=== PATIENT | female | born 1955 | race Caucasian/White ===

== ENCOUNTER 2017-05-24 11:33 | Inpatient (IN) | payer BC ==
[2017-05-24 12:17] LABS: CHLORIDE,CL 102 mmol/L (98-115); SODIUM,NA 142 mmol/L (136-145)
[2017-05-24] MEDS ORDERED: Ondansetron 4 MG Tab.DIS PO PRN (13:32)
[2017-05-24] MEDS ORDERED: Sodium Chloride 0.9% 5 ML Syringe FLUSH PRN (13:32)
[2017-05-24] MEDS ORDERED: Non-Formulary Medication 1 Each (Rup Rub 1 APPLIC) TOP PRN (13:39)
[2017-05-24] MEDS ORDERED: SUMAtriptan 25 MG Tab PO PRN (13:39)
[2017-05-24] MEDS ORDERED: Albuterol HFA 18 Gm Inhaler INH PRN (13:39)
[2017-05-24] MEDS ORDERED: 20% Ketoprofen 12 GM, 3% Menthol 1.8 GM & 8% Trolamine Salicylate 46.2 GM TOP PRN ×3 (13:46)
[2017-05-24] MEDS ORDERED: Oseltamivir 75 MG Cap PO ONE ×2 (14:01→20:42)
[2017-05-24] MEDS: Oseltamivir 75 MG Cap PO SCH ×2 (14:01→20:42)
[2017-05-24] MEDS ORDERED: Ketorolac 30 MG/ML SDV IVPUSH ONE (14:02)
[2017-05-24] MEDS: Sodium Chloride 0.9% 1,000 ML IV SCH ×2 (14:08→23:22)
[2017-05-24] MEDS: Acetaminophen 650 MG Tab.ER PO SCH ×2 (14:08→19:57)
[2017-05-24] MEDS: Benzonatate 100 MG Cap PO PRN ×2 (14:11→22:22)
[2017-05-24] MEDS: Azithromycin 500 MG in Sodium Chloride 0.9% 250 ML IV SCH (14:58)
[2017-05-24] MEDS: Albuterol/Ipratropium 3.0-0.5 MG/3 ML Neb Soln NEB PRN ×2 (16:21→20:43)
[2017-05-24] MEDS: Metoprolol Succinate 50 MG Tab.ER PO SCH (20:41)
[2017-05-24] MEDS: guaiFENesin/Dextromethorphan 100-10 MG/5 ML Soln 5 ML Cup PO PRN (20:42)
[2017-05-25] MEDS: Acetaminophen 650 MG Tab.ER PO SCH ×4 (02:10→19:07)
[2017-05-25] MEDS: Albuterol/Ipratropium 3.0-0.5 MG/3 ML Neb Soln NEB PRN ×3 (03:11→19:40)
[2017-05-25] MEDS: ALPRAZolam 0.25 MG Tab PO PRN (03:14)
[2017-05-25] MEDS: guaiFENesin/Dextromethorphan 100-10 MG/5 ML Soln 5 ML Cup PO PRN ×3 (03:14→19:39)
[2017-05-25] MEDS: Sodium Chloride 0.9% 1,000 ML IV SCH ×3 (06:01→22:58)
[2017-05-25 08:00] LABS: CHLORIDE,CL 104 mmol/L (98-115); SODIUM,NA 146 mmol/L (136-145)
[2017-05-25] MEDS ORDERED: Metoprolol Succinate 50 MG Tab.ER PO SCH (09:00)
[2017-05-25] MEDS ORDERED: POTASSIUM GLUCONATE PO SCH (09:00)
[2017-05-25] MEDS: Multivitamins with Minerals/Iron/Folic Acid/Lycopene Tab PO SCH (09:20)
[2017-05-25] MEDS: Oseltamivir 75 MG Cap PO SCH ×2 (09:20→20:25)
[2017-05-25] MEDS ORDERED: Oseltamivir 75 MG Cap PO ONE ×2 (09:20→20:25)
[2017-05-25] MEDS: Losartan 50 MG Tab PO SCH (09:20)
[2017-05-25] MEDS: Cholecalciferol (Vitamin D3) 1,000 Unit Tab PO SCH (09:23)
[2017-05-25] MEDS: Venlafaxine 150 MG Cap.ER PO SCH (09:23)
[2017-05-25] MEDS: Benzonatate 100 MG Cap PO PRN (09:27)
[2017-05-25] MEDS ORDERED: methylPREDNISolone Sodium Succinate 125 MG/2 ML SDV IVPUSH ONE (10:01)
[2017-05-25] MEDS: Acetaminophen 325 MG Tab PO PRN (11:09)
--- NOTE | 2017-05-25 13:00 | PN ---
05/25/2017 PATIENT NAME: SHORTY PIÑA This is a 62-year-old female, who was admitted yesterday with influenza B. She was seen in the clinic on 05/22/2017, with findings consistent with an upper respiratory infection. She was not checked for influenza that day due to the fact that she was not febrile. CBC was normal, CMP was normal, and TSH was normal. She also had an associated complaint of weight gain with inability to lose weight. She progressively became worse over the past two days and saw Dr. Eneida Vee in the clinic yesterday. She was swabbed for influenza A and B and was positive for influenza B as previously stated. The patient states today she feels "pretty tough." She has been running a low-grade temp this morning of 100.3. White count yesterday was 10.8, today at 7.1; hemoglobin was 14.2 yesterday, now 11.7. She does have serial CBCs throughout the weekend ordered. Sodium was 142 yesterday, today 146, clinically insignificant. BUN and creatinine are normal with a GFR of over 60. She has been pancultured with cultures pending. Urine culture thus far has had no growth after one day. The patient has a horrible cough. She has Tessalon Perles ordered due to the fact that Cheratussin was not effective for her. She also has a p.r.n. Robitussin order as well. She was previously treated with Zithromax, prednisone, Cheratussin, and an albuterol inhaler. She has not continued steroids in the hospital, however, continues on Zithromax. She is also being treated with Tamiflu. PHYSICAL EXAMINATION: VITAL SIGNS: Temp is 100.3, pulse is 92, respirations 20, blood pressure 131/85, O2 saturations 94% on room air. SKIN: Very warm and dry to touch. CARDIAC: Reveals S1, S2 to be normal. Rate and rhythm are regular. No murmur, click, or gallop is auscultated. LUNGS: Coarse rhonchi as well as inspiratory and expiratory wheezes throughout. IMPRESSION: Influenza B. We will continue Tamiflu as well as Zithromax. She can continue with the Tessalon as well as Robitussin for the cough. We will add Solu-Medrol 125 mg x1 today and then continue Solu-Medrol t.i.d. at a dose of 80 mg starting tomorrow. I will see her tomorrow as well. Hopefully, she improves quickly. She is still feeling very ill. She is in isolation, which is appropriate for the care of this patient. /[id number]/MODL
[2017-05-25] MEDS: Azithromycin 500 MG in Sodium Chloride 0.9% 250 ML IV SCH (13:55)
[2017-05-25] MEDS: Ketorolac 30 MG/ML SDV IVPUSH PRN (18:21)
[2017-05-25] MEDS: Metoprolol Succinate 50 MG Tab.ER PO SCH (20:26)
[2017-05-25] MEDS: Zolpidem 5 MG Tab PO PRN (21:24)
[2017-05-26] MEDS: Acetaminophen 650 MG Tab.ER PO SCH ×4 (03:12→19:33)
[2017-05-26] MEDS: Albuterol/Ipratropium 3.0-0.5 MG/3 ML Neb Soln NEB PRN ×2 (06:26→10:59)
[2017-05-26] MEDS: guaiFENesin/Dextromethorphan 100-10 MG/5 ML Soln 5 ML Cup PO PRN (06:33)
[2017-05-26] MEDS: Sodium Chloride 0.9% 1,000 ML IV SCH ×2 (07:31→17:24)
[2017-05-26] MEDS: Oseltamivir 75 MG Cap PO SCH ×2 (08:24→21:09)
[2017-05-26] MEDS ORDERED: Oseltamivir 75 MG Cap PO ONE ×2 (08:24→21:09)
[2017-05-26] MEDS: Multivitamins with Minerals/Iron/Folic Acid/Lycopene Tab PO SCH (08:25)
[2017-05-26] MEDS: Cholecalciferol (Vitamin D3) 1,000 Unit Tab PO SCH (08:25)
[2017-05-26] MEDS: Venlafaxine 150 MG Cap.ER PO SCH (08:25)
[2017-05-26] MEDS: Losartan 50 MG Tab PO SCH (08:26)
[2017-05-26] MEDS: methylPREDNISolone Sodium Succinate 125 MG/2 ML SDV IVPUSH SCH ×2 (08:35→15:41)
[2017-05-26] MEDS: Benzonatate 100 MG Cap PO PRN (08:35)
[2017-05-26 09:01] LABS: CHLORIDE,CL 108 mmol/L (98-115); SODIUM,NA 142 mmol/L (136-145)
[2017-05-26] MEDS ORDERED: Levofloxacin/Dextrose 5%-Water 500 MG in Premix Bag 1 BAG IV SCH (10:00)
[2017-05-26] MEDS: Codeine/guaiFENesin 100mg-10 MG/5 ML Syrup 10 ML Cup PO PRN ×3 (11:04→19:45)
--- NOTE | 2017-05-26 12:04 | PN ---
05/26/2017 PATIENT NAME: SHORTY PIÑA ADDENDUM: She will not be started on Levaquin as she is allergic to Cipro. I will talk to Dr. Eneida Vee in regard to starting vancomycin versus continuing the Zithromax. The patient does not appear to be improving on just the Zithromax. /[id number]/MODL
--- NOTE | 2017-05-26 12:39 | PN ---
05/26/2017 PATIENT NAME: SHORTY BARNES ADDENDUM This is a second addendum on Shorty Barnes from 05/26/2017. I consulted via telephone with Dr. Eneida Vee in regard to further antibiotics. She recommended that the patient be started on doxycycline 100 mg b.i.d. orally, which we will do. She did not recommend that a vancomycin be used because the patient is not an MRSA risk. Also due to the fact that the nipple shadow versus a right lower lung nodule was found on the initial chest x- ray, nipple markers will be used for the chest x-ray today. /[id number]/MODL
[2017-05-26] MEDS: Azithromycin 500 MG in Sodium Chloride 0.9% 250 ML IV SCH (13:43)
[2017-05-26] MEDS: Zolpidem 5 MG Tab PO PRN (21:07)
[2017-05-26] MEDS: ALPRAZolam 0.25 MG Tab PO PRN (21:07)
[2017-05-26] MEDS: Metoprolol Succinate 50 MG Tab.ER PO SCH (21:08)
[2017-05-27] MEDS: methylPREDNISolone Sodium Succinate 125 MG/2 ML SDV IVPUSH SCH ×3 (00:02→16:25)
[2017-05-27] MEDS: Codeine/guaiFENesin 100mg-10 MG/5 ML Syrup 10 ML Cup PO PRN ×5 (00:02→21:34)
[2017-05-27] MEDS: Sodium Chloride 0.9% 1,000 ML IV SCH (00:53)
[2017-05-27] MEDS: Acetaminophen 650 MG Tab.ER PO SCH ×4 (00:55→19:40)
[2017-05-27] MEDS: Benzonatate 100 MG Cap PO PRN ×3 (03:12→21:33)
[2017-05-27] MEDS: Losartan 50 MG Tab PO SCH ×2 (06:10→08:59)
[2017-05-27] MEDS: Albuterol/Ipratropium 3.0-0.5 MG/3 ML Neb Soln NEB PRN ×4 (06:57→21:34)
[2017-05-27 07:44] LABS: CHLORIDE,CL 106 mmol/L (98-115); SODIUM,NA 146 mmol/L (136-145)
--- NOTE | 2017-05-27 08:13 | PN ---
05/26/2017PATIENT NAME: SHORTY PIÑA This is a 62-year-old female who is being seen today on inpatient rounds. This is her 3rd hospital day. She was admitted on 05/24/2017 with influenza B. She had initially been seen in the clinic on 05/22/2017 with an upper respiratory infection. She did not improve; in fact, declined and developed a fever and came back into the clinic on Saturday, 05/24 and was found to be positive for influenza B. The patient has a harsh nonproductive cough. Initially, she described her symptoms and the cough from coming more in her windpipe, but now she feels as though the cough has moved down into her lungs. She is using Tessalon Perles as well as plain Robitussin for the cough with little relief. She was taking Cheratussin initially as an outpatient, however, did not feel it was very effective. She is open to giving it another try as her cough is really wearing her down. She is just a tiny bit better today clinically. She has been afebrile for the past 12 hours with a temp of 98.9, 98.4, and 98.1. Lab results from today, her white count is normal at 9.1. She does have an elevated neutrophil percentage of 73.1. This is up from yesterday, but not as high as it was on 05/24. Comprehensive metabolic panel shows an elevated glucose, most likely steroid induced; calcium of 8.0, alkaline phosphatase is low at 6.0, and albumin is 2.9. Liver function tests are normal. Urine culture shows no growth after two days. Blood cultures show no growth after 24 hours. Corrected calcium is 8.9 based on her albumin, which is within normal limits. Chest x-ray from 05/24/2017 showed nipple shadow versus nodule on the right lung base, consider repeat with nipple markers. No acute infiltrates were identified at that time. When I came into the room today, the patient was crying more out of frustration. She is sick of being so sick per her report. Her daughter did call and question whether the patient needed to be transferred to [place]. I do not believe that that is clinically indicated at that time, nor does the patient want to be transferred. I do not believe it would be an appropriate transfer since she is not deteriorating and is hemodynamically stable and oxygenating adequately. PHYSICAL EXAMINATION: GENERAL: On examination, the patient appears to be in no acute distress, however, she does have a very harsh cough. VITAL SIGNS: Temperature is 98.1, pulse 84, respirations 20, blood pressure 150/80, oxygen saturation is 98% on room air. SKIN: Warm and dry to touch. CARDIAC: Exam reveals S1, S2 to be normal. Rate and rhythm are regular. No murmur, click, or gallop is auscultated. LUNGS: The lungs continue to have coarse rhonchi as well as inspiratory and expiratory wheezes. I do not auscultate any rales. IMPRESSION: Influenza B with harsh cough, not improved with current p.r.n. cough suppressants. We will repeat the chest x-ray today. We will add Cheratussin back into her p.r.n. cough medications. She has been using Tessalon Perles due to the ineffectiveness of the Cheratussin on an outpatient basis, but the patient is willing to try this again. She has been also using normal Robitussin. She is on day five of Zithromax. This will be discontinued after today's dose and she will start on Levaquin 500 mg IV daily. We will continue to monitor her labs. She is hemodynamically stable. She is oxygenating well. Clinically, she appears to be a tiny bit better, however, the patient does not feel any better than she did yesterday. We will continue to follow closely. I have communicated my findings with Dr. Vee who is the admitting physician and I am waiting for a response. /[id number]/MODL
--- NOTE | 2017-05-27 08:42 | PCM.PN ---
- General Info Date of Service: 05/27/17 Admission Dx/Problem (Free Text): Influenza B - Review of Systems Systems Review Comment:: Sherice is seen this morning in inpatient rounds. She was admitted on 05/24/17 with Influenza B. She had been on Tamiflu and Azithromycin. She did 5 days of azithromycin and was not felt to be getting much better and so her antibiotics was changed on 05/26/17 to doxycycline due to allergies to PCN and flouroquinolones. She states this morning she feels like she may be getting a little bit getter. Her cough is more manageable and is starting to loosen up. She had a temp of 99 this morning and BP was 180/106, recheck she states was also high but has not yet been charted. She had not yet taken her morning meds at the time her BP had been taken. She also has had IVF's running at 125 cc/hr and she now has good oral intake. She still feels SOB and has been wheezing. She is on oxygen at 2L/min. This is keeping her sats at 97%. She has not had any problems with urination or bowel movements. She has been up and walking and sitting in a chair. - Patient Data Vitals - Most Recent: Last Vital Signs Temp 99.0 F 05/27/17 06:25 Pulse 100 05/27/17 06:57 Resp 16 05/27/17 06:25 BP 180/106 H 05/27/17 06:25 Pulse Ox 97 05/27/17 06:57 Weight - Most Recent: 197 lb 9.6 oz I&O - Last 24 Hours: Intake & Output 05/26/17 05/27/17 05/27/17 22:59 06:59 14:59 Intake Total 2628 1321 Output Total 1700 1100 Balance 928 221 Lab Results Last 24 Hours: Laboratory Results - last 24 hr 05/26/17 05/26/17 05/27/17 Range/Units 06:35 06:35 07:10 WBC 10.6 H (5.0-10.0) 10^3/uL RBC 3.76 L (3.80-5.50) 10^6/uL Hgb 11.6 L (12.0-16.0) g/dL Hct 34.2 L (37.0-47.0) % MCV 90.8 (82.0-92.0) fL MCH 30.8 (27.0-31.0) pg MCHC 33.9 (32.0-36.0) g/dL RDW 12.4 (11.5-14.5) % Plt Count 211 (150-300) 10^3/uL MPV 8.0 (7.4-10.4) fL Neut % (Auto) 86.7 H (50.0-70.0) % Lymph % (Auto) 10.9 L (20.0-40.0) % [place] % (Auto) 2.2 (2.0-8.0) % Eos % (Auto) 0.1 L (1.0-3.0) % Baso % (Auto) 0.1 (0.0-1.0) % Neut # (Auto) 9.2 H (2.5-7.0) 10^3/uL Lymph # (Auto) 1.2 (1.0-4.0) 10^3/uL [place] # (Auto) 0.2 (0.1-0.8) 10^3/uL Eos # (Auto) 0.0 L (0.1-0.3) 10^3/uL Baso # (Auto) 0.0 (0.0-0.1) 10^3/uL Sodium 142 (136-145) mmol/L Potassium 3.7 (3.3-5.3) mmol/L Chloride 108 (98-115) mmol/L Carbon Dioxide 26.1 (21.0-32.0) mmol/L BUN 6 (6-25) mg/dL Creatinine 0.64 (0.51-1.17) mg/dL Est Cr Clr Drug Dosing 76.68 mL/min Estimated GFR (MDRD) > 60 mL/min Glucose 114 H (70-110) mg/dL Calcium 8.0 L (8.7-10.3) mg/dL Total Bilirubin 0.2 (0.2-1.0) mg/dL Direct Bilirubin 0.0 (0.0-0.2) mg/dL AST 16 (15-37) U/L ALT 20 (12-78) U/L Alkaline Phosphatase 85 (46-116) IU/L Total Protein 6.0 L (6.4-8.2) g/dL Albumin 2.90 L (3.00-4.80) g/dL 05/27/17 Range/Units 07:10 WBC (5.0-10.0) 10^3/uL RBC (3.80-5.50) 10^6/uL Hgb (12.0-16.0) g/dL Hct (37.0-47.0) % MCV (82.0-92.0) fL MCH (27.0-31.0) pg MCHC (32.0-36.0) g/dL RDW (11.5-14.5) % Plt Count (150-300) 10^3/uL MPV (7.4-10.4) fL Neut % (Auto) (50.0-70.0) % Lymph % (Auto) (20.0-40.0) % [place] % (Auto) (2.0-8.0) % Eos % (Auto) (1.0-3.0) % Baso % (Auto) (0.0-1.0) % Neut # (Auto) (2.5-7.0) 10^3/uL Lymph # (Auto) (1.0-4.0) 10^3/uL [place] # (Auto) (0.1-0.8) 10^3/uL Eos # (Auto) (0.1-0.3) 10^3/uL Baso # (Auto) (0.0-0.1) 10^3/uL Sodium 146 H (136-145) mmol/L Potassium 4.3 (3.3-5.3) mmol/L Chloride 106 (98-115) mmol/L Carbon Dioxide 28.8 (21.0-32.0) mmol/L BUN 8 (6-25) mg/dL Creatinine 0.64 (0.51-1.17) mg/dL Est Cr Clr Drug Dosing 76.68 mL/min Estimated GFR (MDRD) > 60 mL/min Glucose 149 H (70-110) mg/dL Calcium 8.1 L (8.7-10.3) mg/dL Total Bilirubin (0.2-1.0) mg/dL Direct Bilirubin (0.0-0.2) mg/dL AST (15-37) U/L ALT (12-78) U/L Alkaline Phosphatase (46-116) IU/L Total Protein (6.4-8.2) g/dL Albumin (3.00-4.80) g/dL Mikal Results Last 24 Hours: Microbiology 05/24/17 14:55 Aerobic Blood Culture - Preliminary Blood - Venous - Lab Draw NO GROWTH AFTER 2 DAYS Anaerobic Blood Culture - Preliminary NO GROWTH AFTER 2 DAYS 05/24/17 14:40 Aerobic Blood Culture - Preliminary Blood - Venous NO GROWTH AFTER 2 DAYS Anaerobic Blood Culture - Preliminary NO GROWTH AFTER 2 DAYS 05/24/17 13:32 Urine Culture - Final Urine, Bladder NO GROWTH AFTER 2 DAYS Med Orders - Current: Current Medications Acetaminophen (Tylenol) 650 mg PO Q4H PRN PRN Reason: Pain (Mild 1-3)/fever Last Admin: 05/25/17 11:09 Dose: 650 mg Acetaminophen (Tylenol Arthritis Pain) 650 mg PO Q6H [facility] Last Admin: 05/27/17 07:56 Dose: 650 mg Albuterol (Ventolin Hfa) 0 gm INH BID PRN PRN Reason: Shortness of Breath Albuterol/Ipratropium (Duoneb 3.0-0.5 Mg/3 Ml) 3 ml NEB Q4H PRN PRN Reason: Shortness Of Breath/wheezing Last Admin: 05/27/17 06:57 Dose: 3 ml Alprazolam (Xanax) 0.5 mg PO BID PRN PRN Reason: Anxiety Last Admin: 05/26/17 21:07 Dose: 0.5 mg Benzonatate (Tessalon Perles) 200 mg PO TID PRN PRN Reason: Cough Last Admin: 05/27/17 03:12 Dose: 200 mg Cholecalciferol (Vitamin D3) 1,000 units PO DAILY [facility] Last Admin: 05/26/17 08:25 Dose: 1,000 units Ketoprofen 12 gm/ Menthol 1.8 gm/ Trolamine Salicylate 46.2 gm 0 gm TOP BID PRN PRN Reason: PAIN Doxycycline Hyclate (Vibramycin) 100 mg PO BID [facility] Stop: 06/05/17 12:01 Last Admin: 05/26/17 21:07 Dose: 100 mg Guaifenesin/Codeine Phosphate (Robitussin Ac) 10 ml PO Q4H PRN PRN Reason: Cough Last Admin: 05/27/17 06:21 Dose: 10 ml Guaifenesin/Phenylephrine HCl (Robitussin Dm) 10 ml PO Q4H PRN PRN Reason: Cough Last Admin: 05/26/17 06:33 Dose: 10 ml Ketorolac Tromethamine (Toradol) 30 mg IVPUSH DAILY PRN PRN Reason: Pain Stop: 05/30/17 17:47 Last Admin: 05/25/17 18:21 Dose: 30 mg Losartan Potassium (Cozaar) 100 mg PO DAILY [facility] Last Admin: 05/27/17 06:10 Dose: 100 mg Methylprednisolone Sodium Succinate (Solu-Medrol) 80 mg IVPUSH Q8H [facility] Last Admin: 05/27/17 07:56 Dose: 80 mg Metoprolol Succinate (Toprol Xl) 50 mg PO BEDTIME [facility] Last Admin: 05/26/17 21:08 Dose: 50 mg Multivitamins/Minerals (Centrum) 1 tab PO DAILY [facility] Last Admin: 05/26/17 08:25 Dose: 1 tab Ondansetron HCl (Zofran Odt) 4 mg PO Q4H PRN PRN Reason: nausea, able to take PO Oseltamivir Phosphate (Tamiflu) 75 mg PO BID [facility] Last Admin: 05/26/17 21:09 Dose: 75 mg Sodium Chloride (Syrex Flush) 5 ml FLUSH Q8HR PRN PRN Reason: Keep Vein Open Sumatriptan Succinate (Imitrex) 100 mg PO ASDIRECTED PRN PRN Reason: Headache Venlafaxine HCl (Effexor Xr) 150 mg PO DAILY [facility] Last Admin: 05/26/17 08:25 Dose: 150 mg Zolpidem Tartrate (Ambien) 5 mg PO BEDTIME PRN PRN Reason: Insomnia Last Admin: 05/26/17 21:07 Dose: 5 mg Discontinued Medications Sodium Chloride (Normal Saline) 1,000 mls @ 125 mls/hr IV ASDIRECTED [facility] Last Admin: 05/27/17 00:53 Dose: 125 mls/hr Azithromycin 500 mg/ Sodium (Chloride) 250 mls @ 250 mls/hr IV Q24H [facility] Last Admin: 05/26/17 13:43 Dose: 250 mls/hr Levofloxacin/Dextrose 500 mg/ (Premix) 100 mls @ 100 mls/hr IV Q24H [facility] Last Admin: 05/26/17 12:08 Dose: Not Given Ketorolac Tromethamine (Toradol) 30 mg IVPUSH ONETIME ONE Stop: 05/24/17 14:03 Last Admin: 05/24/17 14:10 Dose: 30 mg Methylprednisolone Sodium Succinate (Solu-Medrol) 125 mg IVPUSH ONETIME ONE Stop: 05/25/17 10:02 Last Admin: 05/25/17 10:27 Dose: 125 mg Metoprolol Succinate (Toprol Xl) 50 mg PO DAILY [facility] Non-Formulary Medication (Potassium Gluconate [Potassium Gluconate]) 1 tab PO QAM [facility] Vancomycin HCl (Pharmacy To Dose - Vancomycin) 1 dose .XX ASDIRECTED [facility] - Exam Quality Assessment: Supplemental Oxygen General: Alert, Oriented, Cooperative, No Acute Distress Lungs: Wheezing (Diffuse wheezing in all lung hoyos.) GI/Abdominal Exam: Normal Bowel Sounds Extremities: Pedal Edema (Trace non-pitting pedal edema bilaterally.) - Problem List & Annotations (1) Hypertension SNOMED Code(s): 66466366 Code(s): I10 - ESSENTIAL (PRIMARY) HYPERTENSION Status: Acute Current Visit: Yes (2) Influenza B SNOMED Code(s): 14264319 Code(s): J10.1 - FLU DUE TO OTH IDENT INFLUENZA VIRUS W OTH RESP MANIFEST Status: Acute Current Visit: Yes - Problem List Review Problem List Initiated/Reviewed/Updated: Yes - My Orders Last 24 Hours: My Active Orders 05/28/17 05:11 BASIC METABOLIC PANEL,BMP [CHEM] AM CBC WITH AUTO DIFF [HEME] AM 05/29/17 05:11 BASIC METABOLIC PANEL,BMP [CHEM] AM CBC WITH AUTO DIFF [HEME] AM - Assessment Assessment:: Influenza B HTN - Plan Plan:: Influenza B. Finish out BID dosing of Tamiflu for 5 days. Continue with nebulization treatments as well as with oxygen therapy. Continue on solumedrol 80 mg IV q 8 hours until wheezing improves. HTN. Continue home meds of losartan and metoprolol. Will discontinue IVF's. If necessary will give hydralazine 10 mg IV q 6 hours PRN for SBP >180. Continue with ambulation for DVT prophylaxis. CXR done yesterday was negative for infiltrate, mass, effusion or pulmonary vascular congestion. Will continue doxycycline for now but can consider discontinuation of this in the next 1-2 days.
[2017-05-27] MEDS ORDERED: Oseltamivir 75 MG Cap PO ONE ×2 (09:10→21:32)
[2017-05-27] MEDS: Oseltamivir 75 MG Cap PO SCH ×2 (09:10→21:32)
[2017-05-27] MEDS: Venlafaxine 150 MG Cap.ER PO SCH (09:10)
[2017-05-27] MEDS: Multivitamins with Minerals/Iron/Folic Acid/Lycopene Tab PO SCH (09:10)
[2017-05-27] MEDS: Cholecalciferol (Vitamin D3) 1,000 Unit Tab PO SCH (09:10)
[2017-05-27] MEDS: Ketorolac 30 MG/ML SDV IVPUSH PRN (09:14)
[2017-05-27] MEDS: Acetaminophen 325 MG Tab PO PRN (16:42)
[2017-05-27] MEDS: Metoprolol Succinate 50 MG Tab.ER PO SCH (21:32)
[2017-05-27] MEDS: Zolpidem 5 MG Tab PO PRN (21:33)
[2017-05-27] MEDS: ALPRAZolam 0.25 MG Tab PO PRN (21:33)
[2017-05-28] MEDS: methylPREDNISolone Sodium Succinate 125 MG/2 ML SDV IVPUSH SCH ×2 (00:56→07:40)
[2017-05-28] MEDS: Acetaminophen 325 MG Tab PO PRN (00:57)
[2017-05-28] MEDS: Acetaminophen 650 MG Tab.ER PO SCH ×4 (01:05→20:18)
[2017-05-28] MEDS: Codeine/guaiFENesin 100mg-10 MG/5 ML Syrup 10 ML Cup PO PRN ×5 (03:00→22:04)
[2017-05-28] MEDS: Albuterol/Ipratropium 3.0-0.5 MG/3 ML Neb Soln NEB PRN ×2 (06:17→10:20)
[2017-05-28 07:59] LABS: CHLORIDE,CL 103 mmol/L (98-115); SODIUM,NA 146 mmol/L (136-145)
--- NOTE | 2017-05-28 08:37 | PCM.PN ---
- General Info Date of Service: 05/28/17 Admission Dx/Problem (Free Text): Influenza B - Review of Systems Systems Review Comment:: Sherice is seen on inpatient rounds this morning. She was admitted on 05/24/17 with Influenza B. She states last night was her first good night if sleep in days. She feels like her cough is loosening up and she is getting up yellow material. She had a CXR done on 05/26/17 which was negative for infiltrate. She has been on doxycycline, prednisone and Tamiflu. She continues to have low grade fevers of 99 despite getting Tylenol around the clock. Appetite has been good. She is passing her bowels and bladder without problems. No diarrhea. She is getting anxious to go home but wants to be here as long as necessary so she is successful at home. - Patient Data Vitals - Most Recent: Last Vital Signs Temp 97.9 F 05/28/17 07:00 Pulse 85 05/28/17 07:00 Resp 20 05/28/17 07:00 BP 145/90 H 05/28/17 07:00 Pulse Ox 96 05/28/17 07:00 Weight - Most Recent: 197 lb 9.6 oz I&O - Last 24 Hours: Intake & Output 05/27/17 05/28/17 05/28/17 22:59 06:59 14:59 Intake Total 760 360 Output Total 1000 600 Balance -240 -240 Lab Results Last 24 Hours: Laboratory Results - last 24 hr 05/28/17 05/28/17 Range/Units 07:10 07:10 WBC 12.1 H (5.0-10.0) 10^3/uL RBC 4.04 (3.80-5.50) 10^6/uL Hgb 12.0 (12.0-16.0) g/dL Hct 36.7 L (37.0-47.0) % MCV 90.8 (82.0-92.0) fL MCH 29.6 (27.0-31.0) pg MCHC 32.7 (32.0-36.0) g/dL RDW 12.0 (11.5-14.5) % Plt Count 248 (150-300) 10^3/uL MPV 7.8 (7.4-10.4) fL Neut % (Auto) 89.4 H (50.0-70.0) % Lymph % (Auto) 8.4 L (20.0-40.0) % [place] % (Auto) 2.0 (2.0-8.0) % Eos % (Auto) 0.0 L (1.0-3.0) % Baso % (Auto) 0.2 (0.0-1.0) % Neut # (Auto) 10.9 H (2.5-7.0) 10^3/uL Lymph # (Auto) 1.0 (1.0-4.0) 10^3/uL [place] # (Auto) 0.2 (0.1-0.8) 10^3/uL Eos # (Auto) 0.0 L (0.1-0.3) 10^3/uL Baso # (Auto) 0.0 (0.0-0.1) 10^3/uL Sodium 146 H (136-145) mmol/L Potassium 3.9 (3.3-5.3) mmol/L Chloride 103 (98-115) mmol/L Carbon Dioxide 30.1 (21.0-32.0) mmol/L BUN 10 (6-25) mg/dL Creatinine 0.68 (0.51-1.17) mg/dL Est Cr Clr Drug Dosing 72.17 mL/min Estimated GFR (MDRD) > 60 mL/min Glucose 143 H (70-110) mg/dL Calcium 8.6 L (8.7-10.3) mg/dL Mikal Results Last 24 Hours: Microbiology 05/24/17 11:50 Influenza Type A Antigen Screen - Final Nasopharyngeal Swab NEGATIVE INFLUENZA A VIRUS AG Influenza Type B Antigen Screen - Final Positive Influenza B Ag 05/24/17 14:55 Aerobic Blood Culture - Preliminary Blood - Venous - Lab Draw NO GROWTH AFTER 3 DAYS Anaerobic Blood Culture - Preliminary NO GROWTH AFTER 3 DAYS 05/24/17 14:40 Aerobic Blood Culture - Preliminary Blood - Venous NO GROWTH AFTER 3 DAYS Anaerobic Blood Culture - Preliminary NO GROWTH AFTER 3 DAYS Med Orders - Current: Current Medications Acetaminophen (Tylenol) 650 mg PO Q4H PRN PRN Reason: Pain (Mild 1-3)/fever Last Admin: 05/28/17 00:57 Dose: 650 mg Acetaminophen (Tylenol Arthritis Pain) 650 mg PO 0200,0800,1400,2000 [facility] Last Admin: 05/28/17 07:40 Dose: 650 mg Albuterol (Ventolin Hfa) 0 gm INH BID PRN PRN Reason: Shortness of Breath Albuterol/Ipratropium (Duoneb 3.0-0.5 Mg/3 Ml) 3 ml NEB Q4H PRN PRN Reason: Shortness Of Breath/wheezing Last Admin: 05/28/17 06:17 Dose: 3 ml Alprazolam (Xanax) 0.5 mg PO BID PRN PRN Reason: Anxiety Last Admin: 05/27/17 21:33 Dose: 0.5 mg Benzonatate (Tessalon Perles) 200 mg PO TID PRN PRN Reason: Cough Last Admin: 05/27/17 21:33 Dose: 200 mg Cholecalciferol (Vitamin D3) 1,000 units PO DAILY [facility] Last Admin: 05/27/17 09:10 Dose: 1,000 units Ketoprofen 12 gm/ Menthol 1.8 gm/ Trolamine Salicylate 46.2 gm 0 gm TOP BID PRN PRN Reason: PAIN Doxycycline Hyclate (Vibramycin) 100 mg PO BID [facility] Stop: 06/05/17 12:01 Last Admin: 05/27/17 21:33 Dose: 100 mg Guaifenesin/Codeine Phosphate (Robitussin Ac) 10 ml PO Q4H PRN PRN Reason: Cough Last Admin: 05/28/17 07:40 Dose: 10 ml Guaifenesin/Phenylephrine HCl (Robitussin Dm) 10 ml PO Q4H PRN PRN Reason: Cough Last Admin: 05/26/17 06:33 Dose: 10 ml Ketorolac Tromethamine (Toradol) 30 mg IVPUSH DAILY PRN PRN Reason: Pain Stop: 05/30/17 17:47 Last Admin: 05/27/17 09:14 Dose: 30 mg Losartan Potassium (Cozaar) 100 mg PO DAILY [facility] Last Admin: 05/27/17 08:59 Dose: Not Given Methylprednisolone Sodium Succinate (Solu-Medrol) 80 mg IVPUSH Q8H [facility] Last Admin: 05/28/17 07:40 Dose: 80 mg Metoprolol Succinate (Toprol Xl) 50 mg PO BEDTIME [facility] Last Admin: 05/27/17 21:32 Dose: 50 mg Multivitamins/Minerals (Centrum) 1 tab PO 1200 [facility] Ondansetron HCl (Zofran Odt) 4 mg PO Q4H PRN PRN Reason: nausea, able to take PO Oseltamivir Phosphate (Tamiflu) 75 mg PO BID [facility] Last Admin: 05/27/17 21:32 Dose: 75 mg Sodium Chloride (Syrex Flush) 5 ml FLUSH Q8HR PRN PRN Reason: Keep Vein Open Last Admin: 05/28/17 00:58 Dose: 5 ml Sumatriptan Succinate (Imitrex) 100 mg PO ASDIRECTED PRN PRN Reason: Headache Venlafaxine HCl (Effexor Xr) 150 mg PO DAILY [facility] Last Admin: 05/27/17 09:10 Dose: 150 mg Zolpidem Tartrate (Ambien) 5 mg PO BEDTIME PRN PRN Reason: Insomnia Last Admin: 05/27/17 21:33 Dose: 5 mg Discontinued Medications Acetaminophen (Tylenol Arthritis Pain) 650 mg PO Q6H [facility] Last Admin: 05/28/17 01:05 Dose: Not Given Sodium Chloride (Normal Saline) 1,000 mls @ 125 mls/hr IV ASDIRECTED [facility] Last Admin: 05/27/17 00:53 Dose: 125 mls/hr Azithromycin 500 mg/ Sodium (Chloride) 250 mls @ 250 mls/hr IV Q24H [facility] Last Admin: 05/26/17 13:43 Dose: 250 mls/hr Levofloxacin/Dextrose 500 mg/ (Premix) 100 mls @ 100 mls/hr IV Q24H [facility] Last Admin: 05/26/17 12:08 Dose: Not Given Ketorolac Tromethamine (Toradol) 30 mg IVPUSH ONETIME ONE Stop: 05/24/17 14:03 Last Admin: 05/24/17 14:10 Dose: 30 mg Methylprednisolone Sodium Succinate (Solu-Medrol) 125 mg IVPUSH ONETIME ONE Stop: 05/25/17 10:02 Last Admin: 05/25/17 10:27 Dose: 125 mg Metoprolol Succinate (Toprol Xl) 50 mg PO DAILY [facility] Multivitamins/Minerals (Centrum) 1 tab PO DAILY [facility] Last Admin: 05/27/17 09:10 Dose: 1 tab Non-Formulary Medication (Potassium Gluconate [Potassium Gluconate]) 1 tab PO QAM [facility] Vancomycin HCl (Pharmacy To Dose - Vancomycin) 1 dose .XX ASDIRECTED [facility]ANK[facility] - Exam Quality Assessment: Supplemental Oxygen General: Alert, Oriented, Cooperative, No Acute Distress Lungs: Other (She has transmitted bronchial breath sounds, wheezing gone this morning.) Cardiovascular: Regular Rate, Regular Rhythm, No Murmurs GI/Abdominal Exam: Normal Bowel Sounds - Problem List & Annotations (1) Hypertension SNOMED Code(s): 52740884 Code(s): I10 - ESSENTIAL (PRIMARY) HYPERTENSION Status: Acute Current Visit: Yes (2) Influenza B SNOMED Code(s): 10600894 Code(s): J10.1 - FLU DUE TO OTH IDENT INFLUENZA VIRUS W OTH RESP MANIFEST Status: Acute Current Visit: Yes - Problem List Review Problem List Initiated/Reviewed/Updated: Yes - My Orders Last 24 Hours: My Active Orders 05/28/17 08:00 Acetaminophen [Tylenol Arthritis Pain] 650 mg PO 0200,0800,1400,2000 05/28/17 12:00 FA/Lycopene/Lut/MV,Ca,Iron,Min [Centrum] 1 tab PO 1200 05/29/17 05:11 BASIC METABOLIC PANEL,BMP [CHEM] AM CBC WITH AUTO DIFF [HEME] AM - Assessment Assessment:: Influenza B HTN - Plan Plan:: Influenza B. Finish out BID dosing of Tamiflu for 5 days. Continue with nebulization treatments as well as with oxygen therapy. Wheezing improved today , will discontinue solumedrol. HTN. Continue home meds of losartan and metoprolol. If necessary will give hydralazine 10 mg IV q 6 hours PRN for SBP >180. Continue with ambulation for DVT prophylaxis. CXR done 05/26/17 was negative for infiltrate, mass, effusion or pulmonary vascular congestion. Will continue doxycycline for now but can consider discontinuation of this in the next 1-2 days.
[2017-05-28] MEDS: Oseltamivir 75 MG Cap PO SCH ×2 (08:41→20:18)
[2017-05-28] MEDS: Losartan 50 MG Tab PO SCH (08:41)
[2017-05-28] MEDS ORDERED: Oseltamivir 75 MG Cap PO ONE ×2 (08:41→20:18)
[2017-05-28] MEDS: Cholecalciferol (Vitamin D3) 1,000 Unit Tab PO SCH (08:41)
[2017-05-28] MEDS: Venlafaxine 150 MG Cap.ER PO SCH (08:41)
[2017-05-28] MEDS: Benzonatate 100 MG Cap PO PRN ×2 (10:49→20:20)
[2017-05-28] MEDS: Multivitamins with Minerals/Iron/Folic Acid/Lycopene Tab PO SCH (11:56)
[2017-05-28] MEDS ORDERED: Magnesium Hydroxide 400 MG/5 ML Susp 30 ML Cup PO PRN (14:27)
[2017-05-28] MEDS: Metoprolol Succinate 50 MG Tab.ER PO SCH (20:18)
[2017-05-28] MEDS: Zolpidem 5 MG Tab PO PRN (22:05)
[2017-05-28] MEDS: ALPRAZolam 0.25 MG Tab PO PRN (22:05)
[2017-05-29] MEDS: Albuterol/Ipratropium 3.0-0.5 MG/3 ML Neb Soln NEB PRN ×5 (00:18→22:25)
[2017-05-29] MEDS: Acetaminophen 650 MG Tab.ER PO SCH ×4 (02:58→20:30)
[2017-05-29] MEDS: Codeine/guaiFENesin 100mg-10 MG/5 ML Syrup 10 ML Cup PO PRN ×4 (02:59→22:36)
[2017-05-29 08:30] LABS: CHLORIDE,CL 103 mmol/L (98-115); SODIUM,NA 143 mmol/L (136-145)
[2017-05-29] MEDS: amLODIPine 5 MG Tab PO SCH (09:57)
[2017-05-29] MEDS: Losartan 50 MG Tab PO SCH (09:58)
[2017-05-29] MEDS: Venlafaxine 150 MG Cap.ER PO SCH (09:59)
[2017-05-29] MEDS: Cholecalciferol (Vitamin D3) 1,000 Unit Tab PO SCH (10:00)
[2017-05-29] MEDS ORDERED: Furosemide 40 MG/4 ML VIAL IVPUSH ONE (11:00)
[2017-05-29] MEDS: Multivitamins with Minerals/Iron/Folic Acid/Lycopene Tab PO SCH (11:36)
--- NOTE | 2017-05-29 16:03 | PN ---
05/29/2017 PATIENT NAME: SHORTY PIÑA is being seen today on inpatient rounds. She was admitted to the hospital on 05/24/2017 with influenza B. Yesterday, she felt as though she had slept better the night prior. She felt as though her cough was loosening up. Chest x - ray on 05/26 revealed no acute process. She has been treated with Solu-Medrol, Tamiflu, as well as doxycycline. She completed her course of Tamiflu yesterday. Today, when asked how she feels. She states she feels tired and feels like her lungs are just a little bit higher than yesterday. Her blood pressure has been elevated. She is currently on losartan 100 mg daily as well as metoprolol 50 mg daily. Her blood pressure was elevated this morning prior to her medications being administered. Blood pressures were 160/72 prior to medication administration. Oxygenation is 94% on room air. Her IV infiltrated and was discontinued. She is currently not taking anything through her IV. Her appetite has been poor, but she has been taking fluids inadequately. IV fluids were discontinued yesterday. We did entertain the thought of discharging the patient today, however, her blood pressure is still concerning. PHYSICAL EXAMINATION: VITAL SIGNS: Temp is 98.9, pulse 102, respirations 20, blood pressure 160/92, O2 saturation is 94% on room air. SKIN: Warm and dry to touch. CARDIAC: Exam reveals S1, S2 to be normal. Rate and rhythm are regular. No murmur, click, or gallop is auscultated. LUNGS: Have expiratory wheezes throughout. I did auscultate the lungs after respiratory therapy as well and they had improved in the upper lobes, but still some expiratory wheezes in the lower lobes. She does have an edematous appearance, possibly secondary to steroids and IV fluids. IMPRESSION: 1. Influenza B. She is slowly improving. Tamiflu was completed yesterday. We did treat with doxycycline 100 mg b.i.d. empirically as well. Steroids were discontinued yesterday. Chest x-ray was repeated today which showed minimal discoid atelectasis or pleural thickening in the right midlung; lungs were otherwise clear; cardiomediastinal contour is unchanged. 2. Hypertension. We did add in amlodipine into her current regimen of losartan as well as metoprolol. One hour after receiving the amlodipine, her blood pressure was 187/110. I consulted via telephone with Dr. Vee, who had concerns with her blood pressure yesterday as well. We initially were going to administer hydralazine 10 mg daily. Given the patient's edematous appearance, weight was repeated. Her weight on admission was 197 pounds 9.6 ounces. Her weight today is 211 pounds 3.2 ounces. This is a net weight gain of 14 pounds, most likely fluid weight. We will give furosemide 40 mg IV x1. IV line will need to be re- established, which the patient is in approval of. We will monitor her weight tomorrow and daily while she is hospitalized. Hopefully, this will improve her blood pressure as well. Lab values today are stable. The patient does have good renal function with a BUN of 15 and a creatinine of 0.83 and GFR of greater than 60. We will continue to monitor closely. /[id number]/MODL MTDD
[2017-05-29] MEDS: Metoprolol Succinate 50 MG Tab.ER PO SCH (20:31)
[2017-05-29] MEDS: Ketorolac 30 MG/ML SDV IVPUSH PRN (21:37)
[2017-05-29] MEDS: Benzonatate 100 MG Cap PO PRN (21:44)
[2017-05-29] MEDS: ALPRAZolam 0.25 MG Tab PO PRN (22:35)
[2017-05-29] MEDS: Zolpidem 5 MG Tab PO PRN (22:35)
[2017-05-30] MEDS: Acetaminophen 650 MG Tab.ER PO SCH ×3 (02:34→15:34)
[2017-05-30] MEDS: Albuterol/Ipratropium 3.0-0.5 MG/3 ML Neb Soln NEB PRN ×3 (02:36→11:42)
[2017-05-30] MEDS: Codeine/guaiFENesin 100mg-10 MG/5 ML Syrup 10 ML Cup PO PRN ×2 (02:40→08:03)
[2017-05-30 08:16] LABS: CHLORIDE,CL 100 mmol/L (98-115); SODIUM,NA 144 mmol/L (136-145)
[2017-05-30] MEDS ORDERED: Furosemide 40 MG Tab PO ONE (09:30)
[2017-05-30] MEDS: Losartan 50 MG Tab PO SCH (09:34)
[2017-05-30] MEDS: Cholecalciferol (Vitamin D3) 1,000 Unit Tab PO SCH (09:36)
[2017-05-30] MEDS: Venlafaxine 150 MG Cap.ER PO SCH (09:36)
[2017-05-30] MEDS: amLODIPine 5 MG Tab PO SCH (09:38)
[2017-05-30] MEDS ORDERED: Iopamidol 612 MG/ML 75 ML Bottle IV ONE (09:40)
[2017-05-30] MEDS ORDERED: Sodium Chloride 0.9% 50 ML IV SCH (09:45)
[2017-05-30 11:03] VITALS: BP 146/82
[2017-05-30] MEDS: Multivitamins with Minerals/Iron/Folic Acid/Lycopene Tab PO SCH (12:33)
--- NOTE | 2017-05-31 15:33 | DISCH ---
This is 62-year-old female who was been hospitalized since 05/24/2017 with influenza B. Over the course of her hospitalization, she has slowly improved. Her lungs continued to have some expiratory wheezes as well as coarse rhonchi throughout. She has been afebrile now for greater than 48 hours. Lab work is stabilized with a normal white count of 9.5 today. The high white count was 12.1, possibly related to steroids. Comprehensive metabolic panel has been stable with a low protein, albumin and calcium, mostly related to decreased dietary intake. She has had problems with elevated blood pressure. She was found to have a 14 pounds weight gain, thought to be fluid retention. She did respond well to intravenous Lasix yesterday with a 7 pounds weight loss. Lasix was repeated today with improvement in both her blood pressure and her urinary output. The patient has not felt as though she is ready to go home until today. 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 A CT of the chest was performed today which showed clear lungs with no pneumothorax or effusion. No endobronchial lesions. No pleural thickening. PHYSICAL EXAMINATION: VITAL SIGNS: Temperature is 98.1, pulse 78, respirations 18, blood pressure 146/82, oxygen saturation is 90% on room air. Previously 93% on room air. SKIN: Warm and dry to touch. CARDIAC: Reveals S1 and S2 to be normal. Rate and rhythm are regular. No murmur or gallop is auscultated. LUNGS: Have expiratory wheezes as well as coarse rhonchi throughout. They have improved and her cough has loosened up. There is minimal pedal edema. IMPRESSION: 1. Influenza B. I believe her condition is optimized to the point where she can be discharged today. She does not need any further antiviral or antibiotic therapy as she has completed four courses of both in the hospital. She will be discharged with cough medicine as well as albuterol treatments. 2. Hypertension. This has improved from the past couple of days. She has diuresed seven pounds of fluid. She will be discharged on losartan 100 mg daily, which she was taking prior to admission. She will also continue metoprolol 50 mg as previously taken in the hospital. She was started on amlodipine 5 mg daily while hospitalized, she will continue this on an outpatient basis, and she will continue furosemide 20 mg orally daily for five days. She will follow up with either Dr. Eneida Herrera next Saturday at the [facility], if she has any issues prior to that time, I have urged her to call. I did have two phone calls from her daughter, Judith, who lives in [place] and is reportedly a previous documentation writer. She vocalized some concern with her mother being discharged. I did call her and reassured her that I believe that this is the right thing to do. Apparently, the patient does not have a lot help at home. Her is not helpful around the house. [employer] have visited with Sherice in regard to services to be provided at home including Meals on wheels. However, the patient declines at this time. She was urged to call back to the hospital after she gets home, she feels that she is overwhelmed with her activities of daily living. /[id number]/MODL
== END 2017-05-30 15:15 | disposition home or self-care (01) | DRG 113 ==
LOC: KA.OC 11:33 → KA.MS 13:19
PROVIDERS: ADMIT Internal Medicine; ATTEND Internal Medicine
DX: J10.1 Influenza due to other identified influenza virus with other respiratory manifestations (principal); I10 Essential (primary) hypertension; Z88.1 Allergy status to other antibiotic agents; Z88.0 Allergy status to penicillin; Z88.8 Allergy status to other drugs, medicaments and biological substances; Z79.899 Other long term (current) drug therapy; Z79.52 Long term (current) use of systemic steroids; Z87.891 Personal history of nicotine dependence; Z90.710 Acquired absence of both cervix and uterus
CPT/HCPCS: 36415; 71046; 71260; 80048; 80053; 80076; 81001; 83605; 85025; 87040; 87070; 87086; 87205; 87804; 94640; A9270-GY; J0456; J1885; J1940; J2930; J7030; J7050; Q9967

== ENCOUNTER 2020-11-07 12:35 | Emergency (ER) | payer MEDICARE, BC ==
--- NOTE | 2020-11-07 13:04 | EDM.PDOC ---
ED HPI GENERAL MEDICAL PROBLEM - General Chief Complaint: General Stated Complaint: Headache, body aches, sweating Time Seen by Provider: 11/07/20 13:03 Source of Information: Reports: Patient History Limitations: Reports: No Limitations - History of Present Illness INITIAL COMMENTS - FREE TEXT/NARRATIVE: Sherice, 65-year-old female, presents with generalized malaise including body aches and headache. She states she has had increased urine output that may have a slight odor to it atypical abnormal. She states she has been ill since 01 November and was in contact with Dr. Pamela west in the clinic on Saturday and placed on azithromycin. She states she received the azithromycin in the mail on Saturday but because it was late in the day, declined to take anything until Saturday morning. She is worsened since then complaining of lightheadedness cough, fever, general malaise.She has had some ongoing anterior leg discomfort predominantly to her shins for some time, and acknowledges that she has been for the most part in bed for the past 4 days. She is uncertain of any Covid exposure but does speak of being vaccinated. Her is not experiencing any symptoms, but he states he is outside and not around her very much. Onset Date: 11/01/20 Duration: Day(s): Location: Reports: Head, Generalized Quality: Reports: Same as Previous Episode Severity: Severe Improves with: Reports: None Worsens with: Reports: Movement Context: Reports: Activity Associated Symptoms: Reports: Cough, Fever/Chills, Headaches, Loss of Appetite, Malaise Generalized Pain Score (Numeric/FACES): 6 - Related Data Allergies Allergy/AdvReac Type Severity Reaction Status Date / Time acetaminophen Allergy Stomach Verified 11/07/20 13:00 [From Darvocet-N] Upset cefaclor [From Ceclor] Allergy Rash Verified 11/07/20 13:00 ciprofloxacin Allergy Edema Verified 11/07/20 13:00 lisinopril Allergy Cough Verified 11/07/20 13:00 morphine Allergy Vomiting Verified 11/07/20 13:00 oxycodone Allergy Shortness Verified 11/07/20 13:00 of Breath penicillin Allergy Hives Verified 11/07/20 13:00 propoxyphene napsylate Allergy Stomach Verified 11/07/20 13:00 [From Darvocet-N] Upset Home Meds: Home Meds ALPRAZolam [Alprazolam] 1 mg PO BEDTIME PRN 11/05/14 [History] Cholecalciferol (Vitamin D3) [Vitamin D3] 2,000 units PO DAILY 11/05/14 [History] Metoprolol Succinate [Toprol XL] 100 mg PO DAILY 11/05/14 [History] Multivitamin with Minerals [Multiple Vitamin] 1 tab PO DAILY 11/05/14 [History] Albuterol/Ipratropium [DuoNeb 3.0-0.5 MG/3 ML] 3 ml NEB Q4H PRN #90 neb 05/30/17 [Rx] Furosemide 20 mg PO DAILY 5 Days #5 tablet 05/30/17 [Rx] Aspirin [Adult Low Dose Aspirin EC] 81 mg PO DAILY 11/07/20 [History] Azithromycin [Zithromax] 250 mg PO DAILY 11/07/20 [History] Ergocalciferol (Vitamin D2) [Vitamin D2] 50,000 unit PO MOFR 11/07/20 [History] Furosemide [Lasix] 40 mg PO DAILY 11/07/20 [History] Losartan/Hydrochlorothiazide [Losartan-HCTZ 100-25 MG] 1 each PO DAILY 11/07/20 [History] Venlafaxine HCl [Venlafaxine HCl ER] 150 mg PO DAILY 11/07/20 [History] Vit A/Vit C/Vit E/Zinc/Copper [Preservision Areds Softgel] 2 cap PO DAILY 11/07/20 [History] Past Medical History HEENT History: Reports: Cataract Cardiovascular History: Reports: Hypertension Other Cardiovascular History: dizziness Respiratory History: Reports: Other (See Below) Other Respiratory History: pleurisy Gastrointestinal History: Reports: Colon Polyp Genitourinary History: Reports: None [employer]PERATOR History: Reports: Endometriosis, Musculoskeletal History: Reports: Neck Pain, Chronic Other Musculoskeletal History: h/o fx. clavical Neurological History: Reports: Brain Injury, Concussion, Migraines, Vertigo Other Neuro History: All due to a fall in 2010. Psychiatric History: Reports: Anxiety Endocrine/Metabolic History: Reports: Obesity/BMI 30+ Dermatologic History: Reports: Other (See Below) Other Dermatologic History: hands peel - Infectious Disease History Infectious Disease History: Reports: Chicken Pox - Past Surgical History HEENT Surgical History: Reports: Cataract Surgery, Oral Surgery, Tonsillectomy Cardiovascular Surgical History: Reports: None GI Surgical History: Reports: Appendectomy, Colonoscopy Female Surgical History: Reports: Breast Reduction, Hysterectomy Other Female Surgeries/Procedures: endometriosis Endocrine Surgical History: Reports: None Neurological Surgical History: Reports: None Musculoskeletal Surgical History: Reports: None, Shoulder Surgery Social & Family History - Family History Family Medical History: No Pertinent Family History HEENT: Reports: None Cardiac: Reports: Other (See Below) Respiratory: Reports: Asthma, COPD GI: Reports: Other (See Below) Neurological: Reports: Alzheimers Disease Endocrine/Metabolic: Reports: Diabetes, type II (brother with DM) Hematologic: Reports: None Immunologic: Reports: None Dermatologic: Reports: None Oncologic: Reports: Other (See Below) Other Oncologic Family History: mother - cancer - Caffeine Use Caffeine Use: Reports: Coffee, Soda ED ROS GENERAL - Review of Systems Review Of Systems: Comprehensive ROS is negative, except as noted in HPI. ED EXAM, GENERAL - Physical Exam Exam: See Below Free Text/Narrative:: Alert oriented with an appearance of illness. She is very dry in appearance with very tacky dry oral membranes with no exudate or erythema. PERRLA with no icterus nor injection noted, EOM intact. There is no tenderness to the neck with no lymphadenopathy. There is no rigidity. Thorax is somewhat harsh on exhalation and slightly diminished bases with no production, nor cough exhibited at the time of examination. Cardiac is S1-S2 somewhat distant with a faint systolic murmur. Abdomen is rotund firm but nontender bowel sounds are present. rectal is deferred. There is +1 edema to the lower extremities with no tenderness appreciated. Negative Homans' sign bilateral. She does states she has leg pain that is more anterior. #1 Interpretation EKG Date: 11/07/20 Time: 13:42 Rhythm: Other (accelerated junctional rate 103) Rate (Beats/Min): 103 [place]: Other P-Wave: Absent QRS: Normal ST-T: Normal QT: Normal Comparison: Change From Previous EKG Course - Vital Signs Last Recorded V/S: Last Vital Signs Temp 97.9 F 11/07/20 12:51 Pulse 102 H 11/07/20 14:30 Resp 25 H 11/07/20 14:30 BP 135/66 11/07/20 14:30 Pulse Ox 95 11/07/20 14:30 - Orders/Labs/Meds Orders: Active Orders 24 hr Category Date Time Status Peripheral IV Care [RC] . DIRECTED Care 11/07/20 13:21 Active Venous Doppler Lwr Ext Bi [US] Stat Exams 11/07/20 17:01 Ordered CULTURE BLOOD [BC] Stat Lab 11/07/20 15:50 Received CULTURE BLOOD [BC] Stat Lab 11/07/20 16:20 Received CULTURE URINE [RM] Stat Lab 11/07/20 13:18 Received Sodium Chloride 0.9% [Normal Saline] 100 ml Med 11/07/20 14:00 Active IV ASDIRECTED Sodium Chloride 0.9% [Saline Flush] Med 11/07/20 13:20 Active 10 ml FLUSH Q8HR PRN Blood Culture x2 Reflex Set [OM.PC] Stat Oth 11/07/20 15:30 Ordered Peripheral IV Insertion Adult [OM.PC] Stat Oth 11/07/20 13:21 Ordered EKG 12 Lead [EK] Stat Ther 11/07/20 13:22 Ordered Medication Orders Sodium Chloride (Normal Saline) 100 mls @ 400 mls/hr IV ASDIRECTED FRANKY Last Admin: 11/07/20 16:19 Dose: 400 mls/hr Documented by: BELKYS Sodium Chloride (Sodium Chloride 0.9% 10 Ml Syringe) 10 ml FLUSH Q8HR PRN PRN Reason: keep vein open Labs: Laboratory Tests 11/07/20 11/07/20 11/07/20 Range/Units 13:00 13:15 13:15 WBC 16.54 H (5.00-10.00) 10^3/uL RBC 4.22 (3.80-5.50) 10^6/uL Hgb 12.7 (12.0-16.0) g/dL Hct 38.1 (37.0-47.0) % MCV 90.3 (82.0-92.0) fL MCH 30.1 (27.0-31.0) pg MCHC 33.3 (32.0-36.0) g/dL RDW 12.8 (11.5-14.5) % Plt Count 230 (150-400) 10^3/uL MPV 10.4 (7.4-10.4) fL Immature Gran % (Auto) 0.4 (0.0-5.0) % Neut % (Auto) 71.7 H (50.0-70.0) % Lymph % (Auto) 14.2 L (20.0-40.0) % [place] % (Auto) 13.5 H (2.0-8.0) % Eos % (Auto) 0.1 L (1.0-3.0) % Baso % (Auto) 0.1 (0.0-1.0) % Neut # (Auto) 11.86 H (2.50-7.00) 10^3/uL Lymph # (Auto) 2.35 (1.00-4.00) 10^3/uL [place] # (Auto) 2.24 H (0.10-0.80) 10^3/uL Eos # (Auto) 0.01 L (0.10-0.30) 10^3/uL Baso # (Auto) 0.02 (0.00-0.10) 10^3/uL Immature Gran # (Auto) 0.06 (0.00-0.50) 10^3/uL D-Dimer, Quantitative (<400) ng/mL Sodium 131 L (136-145) mmol/L Potassium 4.4 (3.5-5.1) mmol/L Chloride 92 L (98-107) mmol/L Carbon Dioxide 33.7 H (21.0-32.0) mmol/L Anion Gap 9.7 (5-15) mmol/L BUN 19 H (7-18) mg/dL Creatinine 1.21 H (0.51-1.17) mg/dL Est Cr Clr Drug Dosing 40.60 mL/min Estimated GFR (MDRD) 44 mL/min Glucose 119 (70-140) mg/dL Lactic Acid (0.4-2.0) mmol/L Calcium 8.8 (8.7-10.3) mg/dL Total Bilirubin 0.8 (0.2-1.0) mg/dL AST 37 (15-37) U/L ALT 34 (14-63) U/L Alkaline Phosphatase 174 H (46-116) U/L Troponin I High Sens (0-51.000) pg/mL Total Protein 7.7 (6.4-8.2) g/dL Albumin 2.94 L (3.40-5.00) g/dL Specimen Type Urine Color (YELLOW) Urine Appearance (CLEAR) Urine pH (5.0-9.0) Ur Specific Falcon (1.005-1.030) Urine Protein (NEGATIVE) mg/dL Urine Glucose (UA) (NEGATIVE) mg/dL Urine Ketones (NEGATIVE) mg/dL Urine Occult Blood (NEGATIVE) Urine Nitrite (NEGATIVE) Urine Bilirubin (NEGATIVE) Urine Urobilinogen (0.2-1.0) E.U./dL Ur Leukocyte Esterase (NEGATIVE) Urine RBC (0-5) /HPF Urine WBC (0-5) /HPF Ur Epithelial Cells /LPF Urine Bacteria (NONE TO FEW) /HPF Influenza Type A RNA Negative (NEGATIVE) Influenza Type B RNA Negative (NEGATIVE) SARS-CoV-2 RNA (RJ) Negative (NEGATIVE) 11/07/20 11/07/20 11/07/20 Range/Units 13:15 13:15 13:15 WBC (5.00-10.00) 10^3/uL RBC (3.80-5.50) 10^6/uL Hgb (12.0-16.0) g/dL Hct (37.0-47.0) % MCV (82.0-92.0) fL MCH (27.0-31.0) pg MCHC (32.0-36.0) g/dL RDW (11.5-14.5) % Plt Count (150-400) 10^3/uL MPV (7.4-10.4) fL Immature Gran % (Auto) (0.0-5.0) % Neut % (Auto) (50.0-70.0) % Lymph % (Auto) (20.0-40.0) % [place] % (Auto) (2.0-8.0) % Eos % (Auto) (1.0-3.0) % Baso % (Auto) (0.0-1.0) % Neut # (Auto) (2.50-7.00) 10^3/uL Lymph # (Auto) (1.00-4.00) 10^3/uL [place] # (Auto) (0.10-0.80) 10^3/uL Eos # (Auto) (0.10-0.30) 10^3/uL Baso # (Auto) (0.00-0.10) 10^3/uL Immature Gran # (Auto) (0.00-0.50) 10^3/uL D-Dimer, Quantitative 865 H (<400) ng/mL Sodium (136-145) mmol/L Potassium (3.5-5.1) mmol/L Chloride (98-107) mmol/L Carbon Dioxide (21.0-32.0) mmol/L Anion Gap (5-15) mmol/L BUN (7-18) mg/dL Creatinine (0.51-1.17) mg/dL Est Cr Clr Drug Dosing mL/min Estimated GFR (MDRD) mL/min Glucose (70-140) mg/dL Lactic Acid 0.9 (0.4-2.0) mmol/L Calcium (8.7-10.3) mg/dL Total Bilirubin (0.2-1.0) mg/dL AST (15-37) U/L ALT (14-63) U/L Alkaline Phosphatase (46-116) U/L Troponin I High Sens < 4.000 (0-51.000) pg/mL Total Protein (6.4-8.2) g/dL Albumin (3.40-5.00) g/dL Specimen Type Urine Color (YELLOW) Urine Appearance (CLEAR) Urine pH (5.0-9.0) Ur Specific Falcon (1.005-1.030) Urine Protein (NEGATIVE) mg/dL Urine Glucose (UA) (NEGATIVE) mg/dL Urine Ketones (NEGATIVE) mg/dL Urine Occult Blood (NEGATIVE) Urine Nitrite (NEGATIVE) Urine Bilirubin (NEGATIVE) Urine Urobilinogen (0.2-1.0) E.U./dL Ur Leukocyte Esterase (NEGATIVE) Urine RBC (0-5) /HPF Urine WBC (0-5) /HPF Ur Epithelial Cells /LPF Urine Bacteria (NONE TO FEW) /HPF Influenza Type A RNA (NEGATIVE) Influenza Type B RNA (NEGATIVE) SARS-CoV-2 RNA (RJ) (NEGATIVE) 11/07/20 Range/Units 13:18 WBC (5.00-10.00) 10^3/uL RBC (3.80-5.50) 10^6/uL Hgb (12.0-16.0) g/dL Hct (37.0-47.0) % MCV (82.0-92.0) fL MCH (27.0-31.0) pg MCHC (32.0-36.0) g/dL RDW (11.5-14.5) % Plt Count (150-400) 10^3/uL MPV (7.4-10.4) fL Immature Gran % (Auto) (0.0-5.0) % Neut % (Auto) (50.0-70.0) % Lymph % (Auto) (20.0-40.0) % [place] % (Auto) (2.0-8.0) % Eos % (Auto) (1.0-3.0) % Baso % (Auto) (0.0-1.0) % Neut # (Auto) (2.50-7.00) 10^3/uL Lymph # (Auto) (1.00-4.00) 10^3/uL [place] # (Auto) (0.10-0.80) 10^3/uL Eos # (Auto) (0.10-0.30) 10^3/uL Baso # (Auto) (0.00-0.10) 10^3/uL Immature Gran # (Auto) (0.00-0.50) 10^3/uL D-Dimer, Quantitative (<400) ng/mL Sodium (136-145) mmol/L Potassium (3.5-5.1) mmol/L Chloride (98-107) mmol/L Carbon Dioxide (21.0-32.0) mmol/L Anion Gap (5-15) mmol/L BUN (7-18) mg/dL Creatinine (0.51-1.17) mg/dL Est Cr Clr Drug Dosing mL/min Estimated GFR (MDRD) mL/min Glucose (70-140) mg/dL Lactic Acid (0.4-2.0) mmol/L Calcium (8.7-10.3) mg/dL Total Bilirubin (0.2-1.0) mg/dL AST (15-37) U/L ALT (14-63) U/L Alkaline Phosphatase (46-116) U/L Troponin I High Sens (0-51.000) pg/mL Total Protein (6.4-8.2) g/dL Albumin (3.40-5.00) g/dL Specimen Type Urincc Urine Color Yellow (YELLOW) Urine Appearance Clear (CLEAR) Urine pH 7.0 (5.0-9.0) Ur Specific [place] 1.015 (1.005-1.030) Urine Protein 100 H (NEGATIVE) mg/dL Urine Glucose (UA) Negative (NEGATIVE) mg/dL Urine Ketones Negative (NEGATIVE) mg/dL Urine Occult Blood Small H (NEGATIVE) Urine Nitrite Negative (NEGATIVE) Urine Bilirubin Negative (NEGATIVE) Urine Urobilinogen 1.0 (0.2-1.0) E.U./dL Ur Leukocyte Esterase Trace H (NEGATIVE) Urine RBC 5-10 H (0-5) /HPF Urine WBC 10-20 H (0-5) /HPF Ur Epithelial Cells Moderate H /LPF Urine Bacteria Few (NONE TO FEW) /HPF Influenza Type A RNA (NEGATIVE) Influenza Type B RNA (NEGATIVE) SARS-CoV-2 RNA (RJ) (NEGATIVE) Meds: Medications Generic Name Dose Route Start Last Admin Trade Name Shaquille PRN Reason Stop Dose Admin Sodium Chloride 100 mls @ 400 mls/hr 11/07/20 14:00 11/07/20 16:19 Normal Saline IV 400 mls/hr ASDIRECTED FRANKY Administration Sodium Chloride 10 ml 11/07/20 13:20 Sodium Chloride 0.9% 10 Ml Syringe FLUSH Q8HR PRN keep vein open Discontinued Medications Generic Name Dose Route Start Last Admin Trade Name Shaquille PRN Reason Stop Dose Admin Sodium Chloride 1,000 mls @ 999 mls/hr 11/07/20 13:22 11/07/20 13:31 Normal Saline IV 11/07/20 14:22 999 mls/hr .BOLUS ONE Administration Sodium Chloride 50 mls @ 200 mls/hr 11/07/20 15:00 Normal Saline IV ASDIRECTED FRANKY Sodium Chloride 1,000 mls @ 999 mls/hr 11/07/20 14:52 11/07/20 15:45 Normal Saline IV 11/07/20 15:52 999 mls/hr .BOLUS ONE Administration Iopamidol 75 ml 11/07/20 14:50 11/07/20 16:18 Iopamidol 755 Mg/Ml 75 Ml Bottle IVPUSH 11/07/20 14:51 75 ml ONETIME ONE Administration - Re-Assessments/Exams Free Text/Narrative Re-Assessment/Exam: 11/07/20 16:00 Headache is nearly resolved at this time with only the administration of fluids. She states she is feeling slightly better. We receive the CT report which was negative in all aspects for pulmonary embolus as well as any infiltrate any infiltrate atelectasis. 11/07/20 17:12 Headache is completely resolved at the time of her discharge. She is feeling quite well ambulating with no difficulty. Free Text/Narrative Re-Assessment/Exam: 11/07/20 17:[address] discussion with Dr. Vee regarding renal status. She agrees on the ultrasound to be performed on Saturday and feels that by taking an aspirin daily until then should be good none for prophylaxis against clot. She is scheduled for a preoperative physical with her Saturday And will repeat laboratory analysis as part of the preop process. Departure - Departure Time of Disposition: 16:58 Disposition: Home, Self-Care 01 Condition: Good Clinical Impression: Headache Qualifiers: Headache type: cluster Headache chronicity pattern: unspecified pattern Intractability: not intractable Qualified Code(s): G44.009 - Cluster headache syndrome, unspecified, not intractable Acute renal failure Qualifiers: Acute renal failure type: unspecified Qualified Code(s): N17.9 - Acute kidney failure, unspecified - Discharge Information *PRESCRIPTION DRUG MONITORING PROGRAM REVIEWED*: Not Applicable *COPY OF PRESCRIPTION DRUG MONITORING REPORT IN PATIENT SOFÍA: Not Applicable Instructions: Acute Kidney Injury, Adult Referrals: Eneida Meyer MD [Primary Care Provider] - Forms: ED Department Discharge Additional Instructions: You need to go home and rest, making sure that you have good fluid intake and an easy to digest diet. You are scheduled for an ultrasound of your legs called a venous Doppler on Saturday at 9:30. Try be at the front desk lead by [phone] register Saturday the . You may take 1 adult strength, 325 mg aspirin daily until having the ultrasound to reduce any further clotting risk. It is very possible that the dehydration is responsible for some of the elevati on in your numbers. It definitely was responsible for your headache as we gave you nothing to resolve your head pain other than IV fluid. Be here Saturday for the ultrasound and then your appointment would be that afternoon with Dr. Vee as previously scheduled. Return to the emergency department if your symptoms should worsen. Sepsis Event Note (ED) - Evaluation Sepsis Screening Result: No Definite Risk - Focused Exam Vital Signs: Vital Signs Temp Pulse Resp BP Pulse Ox 11/07/20 14:30 102 H 25 H 135/66 95 11/07/20 14:15 104 H 24 H 131/62 93 L 11/07/20 14:00 103 H 30 H 128/64 96 11/07/20 13:45 102 H 25 H 135/66 95 11/07/20 13:30 105 H 15 112/63 94 L 11/07/20 13:15 102 H 25 H 111/48 L 94 L 11/07/20 12:51 97.9 F 109 H 25 H 127/67 94 L - Problem List & Annotations (1) Headache SNOMED Code(s): 95796633 Code(s): R51.9 - HEADACHE, UNSPECIFIED Status: Acute Priority: Medium Current Visit: Yes Qualifiers: Headache type: cluster Headache chronicity pattern: unspecified pattern Intractability: not intractable Qualified Code(s): G44.009 - Cluster headache syndrome, unspecified, not intractable (2) Malaise and fatigue SNOMED Code(s): 938647739 Code(s): R53.81 - OTHER MALAISE; R53.83 - OTHER FATIGUE Status: Acute Priority: High Current Visit: Yes (3) Elevated d-dimer SNOMED Code(s): 276091530 Code(s): R79.89 - OTHER SPECIFIED ABNORMAL FINDINGS OF BLOOD CHEMISTRY Status: Acute Priority: High Current Visit: Yes (4) Leukocytosis, unspecified SNOMED Code(s): 250511490, 159521179 Code(s): D72.829 - ELEVATED WHITE BLOOD CELL COUNT, UNSPECIFIED Status: Acute Current Visit: Yes Qualifiers: Leukocytosis type: unspecified Qualified Code(s): D72.829 - Elevated white blood cell count, unspecified (5) COVID-19 ruled out by laboratory testing SNOMED Code(s): 071232996708943490, 249123460344007619 Code(s): Z20.822 - CONTACT WITH AND (SUSPECTED) EXPOSURE TO COVID-19 Status: Ruled-out Priority: High Current Visit: Yes (6) Acute renal failure SNOMED Code(s): 04750020 Code(s): N17.9 - ACUTE KIDNEY FAILURE, UNSPECIFIED Status: Acute Priority: High Current Visit: Yes Qualifiers: Acute renal failure type: unspecified Qualified Code(s): N17.9 - Acute kidney failure, unspecified - Problem List Review Problem List Initiated/Reviewed/Updated: Yes - My Orders Last 24 Hours: My Active Orders 11/07/20 13:18 CULTURE URINE [RM] Stat 11/07/20 13:20 Sodium Chloride 0.9% [Saline Flush] 10 ml FLUSH Q8HR PRN 11/07/20 13:21 Peripheral IV Care [RC] . DIRECTED Peripheral IV Insertion Adult [OM.PC] Stat 11/07/20 13:22 EKG 12 Lead [EK] Stat 11/07/20 14:00 Sodium Chloride 0.9% [Normal Saline] 100 ml IV ASDIRECTED 11/07/20 15:30 Blood Culture x2 Reflex Set [OM.PC] Stat 11/07/20 15:50 CULTURE BLOOD [BC] Stat 11/07/20 16:20 CULTURE BLOOD [BC] Stat 11/07/20 17:01 Venous Doppler Lwr Ext Bi [US] Stat - Assessment/Plan Last 24 Hours: My Active Orders 11/07/20 13:18 CULTURE URINE [RM] Stat 11/07/20 13:20 Sodium Chloride 0.9% [Saline Flush] 10 ml FLUSH Q8HR PRN 11/07/20 13:21 Peripheral IV Care [RC] . DIRECTED Peripheral IV Insertion Adult [OM.PC] Stat 11/07/20 13:22 EKG 12 Lead [EK] Stat 11/07/20 14:00 Sodium Chloride 0.9% [Normal Saline] 100 ml IV ASDIRECTED 11/07/20 15:30 Blood Culture x2 Reflex Set [OM.PC] Stat 11/07/20 15:50 CULTURE BLOOD [BC] Stat 11/07/20 16:20 CULTURE BLOOD [BC] Stat 11/07/20 17:01 Venous Doppler Lwr Ext Bi [US] Stat Plan: You need to go home and rest, making sure that you have good fluid intake and an easy to digest diet. You are scheduled for an ultrasound of your legs called a venous Doppler on Saturday morning at 9:30. Try be at the front desk lead by [phone] register Saturday the . You may take 1 adult strength, 325 mg aspirin daily until having the ultrasound to reduce any further clotting risk. It is very possible that the dehydration is responsible for some of the elevation in your numbers. It definitely was responsible for your headache as we gave you nothing to resolve your head pain other than IV fluid. Be here Saturday morning for the ultrasound and then your appointment would be that afternoon with Dr. Vee as previously scheduled. Return to the emergency department if your symptoms should worsen.
[2020-11-07] MEDS ORDERED: Sodium Chloride 0.9% 10 ML Syringe FLUSH PRN (13:20)
[2020-11-07] MEDS ORDERED: Sodium Chloride 0.9% 1,000 ML IV ONE ×2 (13:22→14:52)
[2020-11-07 13:45] LABS: ANION GAP 9.7 mmol/L (5-15)
--- NOTE | 2020-11-07 13:56 | CR ---
[id number] RAD/RAD Chest PA or AP 1V EXAM: RAD Chest PA or AP 1V INDICATION: BODY ACHES, FEVER, COUGH. COMPARISON: May 29, 2017. DISCUSSION: Cardiomediastinal silhouette is normal in size and contour. No infiltrate, effusion, pneumothorax, or edema. Pulmonary hyperinflation. IMPRESSION: No acute cardiopulmonary abnormality. Skyler Glynn DO 11/07/20 [id number] Thank you for allowing us to participate in the care of your patient.
[2020-11-07] MEDS ORDERED: Sodium Chloride 0.9% 100 ML IV SCH (14:00)
[2020-11-07 14:11] LABS: CORONAVIRUS COVID-19 NAA NEGATIVE (NEGATIVE)
[2020-11-07] MEDS ORDERED: Iopamidol 755 Mg/ML 75 ML Bottle IVPUSH ONE (14:50)
[2020-11-07 14:55] VITALS: BP 135/66; PULSE 102
[2020-11-07] MEDS ORDERED: Sodium Chloride 0.9% 50 ML IV SCH (15:00)
--- NOTE | 2020-11-07 15:49 | CT ---
[id number] CT/CTA Chest Exam: CTA Chest Clinical Data: COUGH ELEVATED D-DIMER COMPARISON: CORRELATION IS MADE WITH APRIL 13, 2020 FINDINGS: There are no pulmonary emboli There is no mediastinal mass or adenopathy The great vessels are intact There is no lung mass There is no pleural effusion or pulmonary parenchymal infiltrate IMPRESSION: NO PULMONARY EMBOLI Harjinder Cantrell MD 11/07/20 [id number] Thank you for allowing us to participate in the care of your patient.
== END 2020-11-07 17:00 | disposition home or self-care (01) ==
LOC: KA.ED 12:35
DX: G44.009 Cluster headache syndrome, unspecified, not intractable (principal); N17.9 Acute kidney failure, unspecified; R60.0 Localized edema; I10 Essential (primary) hypertension; E66.9 Obesity, unspecified; Z68.33 Body mass index [BMI] 33.0-33.9, adult; Z88.6 Allergy status to analgesic agent; Z88.1 Allergy status to other antibiotic agents; Z88.8 Allergy status to other drugs, medicaments and biological substances; Z88.5 Allergy status to narcotic agent; Z88.0 Allergy status to penicillin; Z79.82 Long term (current) use of aspirin; Z79.899 Other long term (current) drug therapy; Z20.822 Contact with and (suspected) exposure to COVID-19
CPT/HCPCS: 0240U; 36415; 71045; 71275; 80053; 81001; 83605; 84484; 85025; 85379; 87040; 87086; 93005; 99284; 99284-25; J7030; Q9967

== ENCOUNTER 2023-01-15 10:06 | Day surgery (SDC) | payer MEDICARE ==
[~2023-01-15 10:06] MED LIST: Sodium Chloride 0.9% 10 ML Syringe FLUSH PRN
[2023-01-15] MEDS ORDERED: Propofol 200 MG/20 ML SDV ONE (10:27)
[2023-01-15] MEDS ORDERED: Midazolam 1 MG/ML 2 ML SDV ONE (10:27)
[2023-01-15] MEDS: Lactated Ringers 1,000 ML IV SCH (10:34)
[2023-01-15 16:18] VITALS: BP 135/79; PULSE 69
== END 2023-01-15 13:45 | disposition home or self-care (01) ==
LOC: KA.SDS 10:06
PROVIDERS: ATTEND Surgery
DX: Z12.11 Encounter for screening for malignant neoplasm of colon (principal); D12.0 Benign neoplasm of cecum; N32.81 Overactive bladder; I10 Essential (primary) hypertension; F41.9 Anxiety disorder, unspecified; K21.9 Gastro-esophageal reflux disease without esophagitis; E66.3 Overweight; G43.909 Migraine, unspecified, not intractable, without status migrainosus; Z88.0 Allergy status to penicillin; Z79.899 Other long term (current) drug therapy; Z98.890 Other specified postprocedural states; Z68.31 Body mass index [BMI] 31.0-31.9, adult; Z90.49 Acquired absence of other specified parts of digestive tract; Z88.8 Allergy status to other drugs, medicaments and biological substances; Z88.2 Allergy status to sulfonamides; Z88.1 Allergy status to other antibiotic agents
CPT/HCPCS: J2250; J2704; J7120

== ENCOUNTER 2024-04-07 08:01 | Day surgery (SDC) | payer MEDICARE ==
[2024-04-07] MEDS: Lactated Ringers 1,000 ML IV SCH (08:32)
[2024-04-07] MEDS ORDERED: Propofol 200 MG/20 ML SDV ONE (09:02)
[2024-04-07] MEDS ORDERED: Midazolam 1 MG/ML 2 ML SDV ONE (09:02)
[2024-04-07] MEDS ORDERED: Glycopyrrolate 0.2 MG/ML SDV ONE (09:02)
[2024-04-07 13:45] VITALS: BP 164/78; PULSE 80
== END 2024-04-07 11:22 | disposition home or self-care (01) ==
LOC: KA.SDS 08:01
PROVIDERS: ATTEND Surgery
DX: K21.00 Gastro-esophageal reflux disease with esophagitis, without bleeding (principal); K22.89 Other specified disease of esophagus; G47.33 Obstructive sleep apnea (adult) (pediatric); Z88.5 Allergy status to narcotic agent; Z88.8 Allergy status to other drugs, medicaments and biological substances; Z88.0 Allergy status to penicillin; Z79.899 Other long term (current) drug therapy
CPT/HCPCS: 00731; 43239; 99100; J1596; J2250; J2704; J7120

== ENCOUNTER 2024-07-15 09:47 | Inpatient (IN) | payer MEDICARE ==
[2024-07-15 10:00] LABS: BASOPHILS ABSOLUTE AUTO 0.04 10^3/uL (0.00-0.10); BASOPHILS PERCENT AUTO 0.5 % (0.0-1.0); EOSINOPHILS ABSOLUTE AUTO 0.93 10^3/uL (0.10-0.30); EOSINOPHILS PERCENT AUTO 10.7 % (1.0-3.0); HEMATOCRIT 41.2 % (37.0-47.0); HEMOGLOBIN 13.9 g/dL (12.0-16.0); IMMATURE GRAN ABSOLUTE AUTO 0.02 10^3/uL (0.00-0.04); IMMATURE GRAN PERCENT AUTO 0.2 % (0.0-0.4); LYMPHOCYTES ABSOLUTE AUTO 2.69 10^3/uL (1.00-4.00); LYMPHOCYTES PERCENT AUTO 31.1 % (20.0-40.0); MEAN CORPUSCULAR HEMOGLOBIN 30.2 pg (27.0-31.0); MEAN CORPUSCULAR HGB CONC 33.7 g/dL (32.0-36.0); MEAN CORPUSCULAR VOLUME 89.6 fL (82.0-92.0); MONOCYTES PERCENT AUTO 6.9 % (2.0-8.0); NEUTROPHILS ABSOLUTE AUTO 4.38 10^3/uL (2.50-7.00); NEUTROPHILS PERCENT AUTO 50.6 % (50.0-70.0); PLATELET COUNT,PLT 258 10^3/uL (150-400); RED CELL DISTRIBUTION WIDTH 12.4 % (11.5-14.5); WHITE BLOOD CELL COUNT,WBC 8.66 10^3/uL (5.00-10.00)
[2024-07-15] MEDS: Sodium Chloride 0.9% 1,000 ML IV ONE (10:14)
[2024-07-15 10:17] LABS: ALBUMIN 3.61 g/dL (3.40-5.00); ANION GAP 13.5 mmol/L (5-15); BILIRUBIN TOTAL 0.5 mg/dL (0.2-1.0); C-REACTIVE PROTEIN 0.73 mg/dL (0.00-0.50); CALCIUM 8.7 mg/dL (8.7-10.3); CARBON DIOXIDE,CO2 34.2 mmol/L (21.0-32.0); CREATININE 0.91 mg/dL (0.51-1.17); EST CRCL DRUG DOSING (CG) 48.96 mL/min; POTASSIUM,K 3.7 mmol/L (3.5-5.1); PROTEIN TOTAL,TP 7.2 g/dL (6.4-8.2)
[2024-07-15] MEDS: Hydrocortisone Sodium Succinate 100 MG/2 ML SDV IV SCH (10:41)
[2024-07-15] MEDS: Albuterol/Ipratropium 3.0-0.5 MG/3 ML Neb Soln NEB ONE (10:52)
[2024-07-15] MEDS ORDERED: Brimonidine 0.2% Ophth Soln 15 ML Bottle EYEBOTH PRN (12:21)
[2024-07-15] MEDS: Azithromycin 500 MG in Sodium Chloride 0.9% 250 ML IV SCH (13:21)
[2024-07-15] MEDS: Sodium Chloride 0.9% 100 ML IV SCH (13:21)
[2024-07-15] MEDS: Sodium Chloride 0.9% 10 ML Syringe FLUSH PRN (13:22)
[2024-07-15] MEDS: Hydrochlorothiazide 25 MG Tab PO SCH (13:24)
[2024-07-15] MEDS: guaiFENesin 600 MG Tab.ER PO SCH (13:24)
[2024-07-15] MEDS: Metoprolol Succinate 50 MG Tab.ER PO SCH (13:24)
[2024-07-15] MEDS: Losartan 50 MG Tab PO SCH ×2 (13:25→20:46)
[2024-07-15] MEDS: Venlafaxine 150 MG Cap.ER PO SCH (15:39)
[2024-07-15] MEDS: Acetaminophen 325 MG Tab PO PRN (15:43)
[2024-07-15] MEDS: NORTRIPTYLINE HCL 10 MG PO SCH (20:45)
[2024-07-15] MEDS: ALPRAZolam 0.25 MG Tab PO PRN (20:49)
[2024-07-16] MEDS: Albuterol/Ipratropium 3.0-0.5 MG/3 ML Neb Soln NEB PRN (01:57)
[2024-07-16] MEDS: Codeine/guaiFENesin 10-100 MG/5 ML Syrup 5 ML Cup PO PRN (02:06)
[2024-07-16 07:15] LABS: HEMATOCRIT 36.6 % (37.0-47.0); HEMOGLOBIN 12.4 g/dL (12.0-16.0); MEAN CORPUSCULAR HEMOGLOBIN 30.4 pg (27.0-31.0); MEAN CORPUSCULAR HGB CONC 33.9 g/dL (32.0-36.0); MEAN CORPUSCULAR VOLUME 89.7 fL (82.0-92.0); MEAN PLATELET VOLUME 10.1 fL (7.4-10.4); PLATELET COUNT,PLT 222 10^3/uL (150-400); RED BLOOD CELL COUNT 4.08 10^6/uL (3.80-5.50); RED CELL DISTRIBUTION WIDTH 12.4 % (11.5-14.5); WHITE BLOOD CELL COUNT,WBC 9.49 10^3/uL (5.00-10.00)
[2024-07-16 07:30] LABS: ALBUMIN 3.27 g/dL (3.40-5.00); ANION GAP 10.1 mmol/L (5-15); BILIRUBIN TOTAL 0.5 mg/dL (0.2-1.0); CALCIUM 8.6 mg/dL (8.7-10.3); CARBON DIOXIDE,CO2 34.9 mmol/L (21.0-32.0); CREATININE 0.81 mg/dL (0.51-1.17); EST CRCL DRUG DOSING (CG) 55.01 mL/min; PROTEIN TOTAL,TP 6.4 g/dL (6.4-8.2)
[2024-07-16] MEDS: Omeprazole 20 MG Cap.CR PO SCH (08:21)
[2024-07-16] MEDS: methylPREDNISolone Sodium Succinate 40 MG/1 ML SDV IVPUSH SCH (08:24)
[2024-07-16] MEDS: Glycerin/Propylene Glycol Eye Drop 15 mL Bottle EYEBOTH SCH ×2 (08:28→08:55)
[2024-07-16] MEDS ORDERED: Hydrochlorothiazide 25 MG Tab PO SCH (09:00)
[2024-07-16] MEDS: Potassium Chloride 20 MEQ Tab.ER PO SCH (10:57)
[2024-07-16] MEDS: Sodium Chloride 0.9% 100 ML IV SCH (13:14)
[2024-07-16] MEDS: methylPREDNISolone Sodium Succinate 125 MG/2 ML SDV IVPUSH SCH (21:27)
[2024-07-16] MEDS: Menthol Lozenge PO PRN (21:55)
[2024-07-17 07:25] LABS: BASOPHILS ABSOLUTE AUTO 0.02 10^3/uL (0.00-0.10); BASOPHILS PERCENT AUTO 0.1 % (0.0-1.0); HEMATOCRIT 39.2 % (37.0-47.0); HEMOGLOBIN 13.4 g/dL (12.0-16.0); IMMATURE GRAN ABSOLUTE AUTO 0.07 10^3/uL (0.00-0.04); IMMATURE GRAN PERCENT AUTO 0.4 % (0.0-0.4); LYMPHOCYTES ABSOLUTE AUTO 1.84 10^3/uL (1.00-4.00); LYMPHOCYTES PERCENT AUTO 11.2 % (20.0-40.0); MEAN CORPUSCULAR HEMOGLOBIN 30.8 pg (27.0-31.0); MEAN CORPUSCULAR HGB CONC 34.2 g/dL (32.0-36.0); MEAN CORPUSCULAR VOLUME 90.1 fL (82.0-92.0); MEAN PLATELET VOLUME 10.1 fL (7.4-10.4); MONOCYTES ABSOLUTE AUTO 0.27 10^3/uL (0.10-0.80); MONOCYTES PERCENT AUTO 1.6 % (2.0-8.0); NEUTROPHILS PERCENT AUTO 86.7 % (50.0-70.0); PLATELET COUNT,PLT 270 10^3/uL (150-400); RED BLOOD CELL COUNT 4.35 10^6/uL (3.80-5.50); RED CELL DISTRIBUTION WIDTH 12.4 % (11.5-14.5)
[2024-07-17 07:38] LABS: ALBUMIN 3.56 g/dL (3.40-5.00); ANION GAP 12.3 mmol/L (5-15); BILIRUBIN TOTAL 0.4 mg/dL (0.2-1.0); CALCIUM 9.1 mg/dL (8.7-10.3); CREATININE 0.81 mg/dL (0.51-1.17); EST CRCL DRUG DOSING (CG) 55.01 mL/min; POTASSIUM,K 4.3 mmol/L (3.5-5.1); PROTEIN TOTAL,TP 7.1 g/dL (6.4-8.2)
[2024-07-17 13:37] VITALS: BP 125/74; PULSE 94
== END 2024-07-17 13:35 | disposition home or self-care (01) | DRG 202 ==
LOC: KA.ED 09:47 → KA.MS 11:36
PROVIDERS: ADMIT Internal Medicine; ATTEND Internal Medicine
DX: J44.1 Chronic obstructive pulmonary disease with (acute) exacerbation (principal); R79.82 Elevated C-reactive protein (CRP); J20.9 Acute bronchitis, unspecified; J44.0 Chronic obstructive pulmonary disease with (acute) lower respiratory infection; I10 Essential (primary) hypertension; M54.9 Dorsalgia, unspecified; M54.2 Cervicalgia; G89.29 Other chronic pain; G43.909 Migraine, unspecified, not intractable, without status migrainosus; F98.8 Other specified behavioral and emotional disorders with onset usually occurring in childhood and adolescence; F41.9 Anxiety disorder, unspecified; F32.A Depression, unspecified; E66.01 Morbid (severe) obesity due to excess calories; G47.33 Obstructive sleep apnea (adult) (pediatric); Z68.34 Body mass index [BMI] 34.0-34.9, adult; Z86.0100 Personal history of colon polyps, unspecified; Z88.6 Allergy status to analgesic agent; Z88.4 Allergy status to anesthetic agent; Z88.1 Allergy status to other antibiotic agents; Z88.5 Allergy status to narcotic agent; Z87.820 Personal history of traumatic brain injury; Z87.828 Personal history of other (healed) physical injury and trauma; Z88.8 Allergy status to other drugs, medicaments and biological substances; Z88.0 Allergy status to penicillin; Z79.899 Other long term (current) drug therapy; Z79.52 Long term (current) use of systemic steroids; Z85.41 Personal history of malignant neoplasm of cervix uteri; Z85.43 Personal history of malignant neoplasm of ovary; Z98.49 Cataract extraction status, unspecified eye; Z90.89 Acquired absence of other organs; Z90.49 Acquired absence of other specified parts of digestive tract; Z98.890 Other specified postprocedural states; Z90.710 Acquired absence of both cervix and uterus; Z77.110 Contact with and (suspected) exposure to air pollution; Z87.891 Personal history of nicotine dependence
CPT/HCPCS: 36415; 71046; 80053; 83605; 83880; 84484; 85025; 85027; 86140; 87040; 94640; 96361; 96374; 99285-25; A9270-GY; J0456; J1720; J2919; J7030; J7050; Q3014

== ENCOUNTER 2024-12-31 18:10 | Emergency (ER) | payer MEDICARE ==
[2024-12-31] MEDS ORDERED: Sodium Chloride 0.9% 10 ML Syringe FLUSH PRN (18:58)
[2024-12-31 19:05] LABS: BASOPHILS ABSOLUTE AUTO 0.03 10^3/uL (0.00-0.10); BASOPHILS PERCENT AUTO 0.3 % (0.0-1.0); EOSINOPHILS ABSOLUTE AUTO 0.30 10^3/uL (0.10-0.30); EOSINOPHILS PERCENT AUTO 3.2 % (1.0-3.0); IMMATURE GRAN ABSOLUTE AUTO 0.03 10^3/uL (0.00-0.04); IMMATURE GRAN PERCENT AUTO 0.3 % (0.0-0.4); LYMPHOCYTES ABSOLUTE AUTO 2.73 10^3/uL (1.00-4.00); LYMPHOCYTES PERCENT AUTO 29.4 % (20.0-40.0); MEAN PLATELET VOLUME 10.2 fL (7.4-10.4); MONOCYTES ABSOLUTE AUTO 0.76 10^3/uL (0.10-0.80); MONOCYTES PERCENT AUTO 8.2 % (2.0-8.0); NEUTROPHILS ABSOLUTE AUTO 5.45 10^3/uL (2.50-7.00); NEUTROPHILS PERCENT AUTO 58.6 % (50.0-70.0); PLATELET COUNT,PLT 229 10^3/uL (150-400); RED BLOOD CELL COUNT 4.11 10^6/uL (3.80-5.50); RED CELL DISTRIBUTION WIDTH 12.3 % (11.5-14.5); WHITE BLOOD CELL COUNT,WBC 9.30 10^3/uL (5.00-10.00)
[2024-12-31 19:12] LABS: B-TYPE NATRIURETIC PEPTIDE,BNP 185 pg/mL (0-100)
[2024-12-31 19:15] LABS: ALANINE AMINOTRANSFERASE,ALT 20 U/L (14-63); ASPARTATE AMNIOTRANSFERASE,AST 18 U/L (15-37); BILIRUBIN TOTAL 0.2 mg/dL (0.2-1.0); BLOOD UREA NITROGEN,BUN 16 mg/dL (7-18); CARBON DIOXIDE,CO2 30.4 mmol/L (21.0-32.0); CHLORIDE,CL 104 mmol/L (98-107); CREATININE 1.04 mg/dL (0.51-1.17); EST CRCL DRUG DOSING (CG) 42.84 mL/min; ESTIMATED GFR 57 mL/min (>=60); GLUCOSE RANDOM 130 mg/dL (70-140); POTASSIUM,K 3.5 mmol/L (3.5-5.1); PROTEIN TOTAL,TP 6.7 g/dL (6.4-8.2); SODIUM,NA 144 mmol/L (136-145)
[2024-12-31 20:29] VITALS: BP 114/52; PULSE 84
== END 2024-12-31 20:30 | disposition home or self-care (01) ==
LOC: KA.ED 18:10
DX: J84.9 Interstitial pulmonary disease, unspecified (principal); R60.0 Localized edema; I10 Essential (primary) hypertension; J44.9 Chronic obstructive pulmonary disease, unspecified; E66.9 Obesity, unspecified; Z90.49 Acquired absence of other specified parts of digestive tract; Z90.710 Acquired absence of both cervix and uterus; Z88.0 Allergy status to penicillin; Z88.5 Allergy status to narcotic agent; Z88.6 Allergy status to analgesic agent; Z88.8 Allergy status to other drugs, medicaments and biological substances; Z79.899 Other long term (current) drug therapy
CPT/HCPCS: 36415; 71045; 80053; 83605; 83880; 84484; 85025; 85379; 99284; A9270-GY